=== PATIENT | female | born 1955 | race Two or more races ===

== ENCOUNTER → 2023-10-25 08:32 | Outpatient (REF) | payer OTHER, SELFPAY | LOC: RAD 08:32 | PROVIDERS: ATTENDING PHYSICIAN Nurse Practitioner Family | DX: M54.16 Radiculopathy, lumbar region (principal) | CPT/HCPCS: 72100 ==

== ENCOUNTER 2024-01-30 14:55 | Emergency (ER) | payer OTHER, SELFPAY ==
[2024-01-30 15:01] VITALS: BP 140/84
[2024-01-30 15:22] VITALS: BP 122/55
--- NOTE | 2024-01-30 15:23 | ED.GENMED ---
History of Present Illness
General
Chief Complaint: Swelling
Time Seen by Provider: 01/30/24 15:09
History of Present Illness
History of Present Illness:
68-year-old female presents to the emergency department with her daughter for evaluation of left wrist pain and swelling. This is apparently going on for several months and intermittent fashion. She also reports intermittent left shoulder,
bilateral knee and bilateral hip discomfort. The joint seem to swell and reduce spontaneously. No fevers, night sweats, or weight loss. States that she followed up with her primary care doctor regarding the symptoms but 'did not get any answers'.
She did have knee injections done by an orthopod at some point during this time with minimal improvement in symptoms.
Review of Systems
Review of Systems
Allergies reviewed?: Yes
All Other Systems: ROS reviewed and negative except as documented in HPI and ROS
Phy Exam
Physical Exam
Physical Exam:
GEN: Well appearing, NAD, WDWN
HEENT: Oral mucosa moist, no scleral icterus
Cardiac: Regular rate
Lung: No respiratory distress, no tachypnea
MSK: Diffuse swelling of the left wrist extending to the mid forearm, no pain with passive range of motion of the left wrist. No obvious large joint effusions on exam
Skin: Good color, no pallor or jaundice, no rashes
Neuro: AO x3, moves all extremities freely
Psych: Calm, cooperative
Scores
Heart Failure Risk
Heart Failure Risk Score: Not Applicable
Course
Orders/Labs/Results
Orders:
Orders
01/30/24 15:18
Venous Doppler Upr Ext Left [US Periph Venous UPPER Ext LT] Urgent
Comment:
Reason For Exam: LUE swelling
01/30/24 15:40
CRP [C-Reactive Protein] Urgent
Complete Blood Count/With Diff Urgent
Comprehensive Metabolic Panel Urgent
01/30/24 15:48
Acetaminophen [Tylenol] 650 mg PO NOW STA
Ibuprofen [Motrin] 400 mg PO NOW STA
01/30/24 17:08
Prednisone [Deltasone] 40 mg PO NOW STA
Abnormal Lab Results
01/30/24
15:40
WBC 14.4 H 10^3/uL
(4.8-10.8)
RBC 3.60 L 10^6/uL
(4.20-5.40)
Hgb 11.2 L g/dL
(12.0-16.0)
Hct 32.2 L %
(37.0-47.0)
MCH 31.1 H pg
(27.0-31.0)
Abs Immat Gran (auto) 0.1 H 10^3/uL
(0-0.05)
Absolute Neuts (auto) 11.5 H 10^3/uL
(1.4-6.5)
Absolute Monos (auto) 0.7 H 10^3/uL
(0.1-0.6)
Neutrophils % 80.1 H %
(42.2-75.2)
Lymphocytes % 12.6 L %
(20.5-51.1)
Sodium 129 L mmol/L
(135-145)
Chloride 90 L mmol/L
(98-107)
C-Reactive Protein 29.40 H mg/L
(0.0-10.00)
01/30/24 15:40
01/30/24 15:40
Vital Signs
Initial and Last Documented VS:
Initial Vital Signs
Temp Pulse Resp BP Pulse Ox
99.5 F 66 20 140/84 98
01/30/24 15:01 01/30/24 15:01 01/30/24 15:01 01/30/24 15:01 01/30/24 15:01
Last Documented Vital Signs
Temp Pulse Resp BP Pulse Ox
99.5 F 60 18 132/68 96
01/30/24 15:01 01/30/24 17:17 01/30/24 17:17 01/30/24 17:17 01/30/24 17:17
MDM/Problems Addressed
MDM/Problems Addressed:
68-year-old female presenting with migratory polyarthralgias of uncertain etiology. She has no constitutional symptoms. Elevated CRP suggestive of inflammatory/autoimmune condition. Upper extremity DVT study was unremarkable. Will treat
empirically with a round of steroids, recommend outpatient rheumatology follow-up
*Critical Care Note
Total Time (30-74mins, 75-104mins- exclusive of procedures): Not Applicable
ED Attending Note
-
Portions of this chart may have been created with voice recognition software.� Occasional wrong word or��sound alike� substitutions may have occurred due to the inherent limitations of voice recognition software.
Discharge Plan
Departure
Patient Disposition: Home (Routine Discharge)
Date of Disposition: 01/30/24
Time of Disposition: 17:07
Patient with high blood pressure during this ER visit?: No
Discharge Problem:
Migratory polyarthritis
Instructions: Joint Pain
Prescriptions:
New
prednisone 20 mg tablet
40 mg PO DAILY 6 Days Qty: 12 0RF
Referrals:
Fariha Ladd DO [Active] - Call in 1-3 days for appt
Taryn Rodriguez NP [Family Provider] -
Interventions
Interventions:
*Risk Screen - Suicide Last Done: 01/30/24 15:27
*General Assessment Last Done: 01/30/24 15:27
*Neglect/Abuse Screening Last Done: 01/30/24 15:27
*ED COVID-19 Vaccine History Last Done: 01/30/24 15:27
*Nursing Disposition Last Done: 01/30/24 17:24
ED- Cardiac Assessment Last Done: 01/30/24 15:43
ED- Pulmonary Assessment Last Done: 01/30/24 15:43
ED-Skin Assessment Last Done: 01/30/24 15:43
Discharge Date and Time
Discharge Date/Time: 01/30/24 17:31
Print Language: MOROCCAN
[2024-01-30 15:26] VITALS: BMI 30.9
[2024-01-30 15:47] LABS: % Basophils 0.4 % (0-2); % Eosinophils 1.9 % (0-6); % Immature Granulocytes 0.3 % (0-0.5); % Lymphocytes 12.6 % (20.5-51.1); % Monocytes 4.7 % (1.7-9.3); % Neutrophils 80.1 % (42.2-75.2); Absolute Basophils 0.1 10^3/uL (0-0.2); Absolute Eosinophils 0.3 10^3/uL (0-0.7); Absolute Immature Granulocytes 0.1 10^3/uL (0-0.05); Absolute Lymphocytes 1.8 10^3/uL (1.2-3.4); Absolute Monocytes 0.7 10^3/uL (0.1-0.6); Absolute Neutrophils 11.5 10^3/uL (1.4-6.5); Hematocrit 32.2 % (37.0-47.0); Hemoglobin 11.2 g/dL (12.0-16.0); Mean Corp Hgb Conc. 34.8 g/dL (33.0-37.0); Mean Corpuscular Hgb 31.1 pg (27.0-31.0); Mean Corpuscular Volume 89.4 fL (81.0-99.0); Mean Platelet Volume 9.7 fL (7.4-10.4); Nucleated Red Blood Cells % 0 %; Platelet Count 341 10^3/uL (130-400); Red Cell Dist. Width 13.2 % (11.5-14.5); White Blood Cell Count 14.4 10^3/uL (4.8-10.8)
[2024-01-30] MEDS: TYLENOL 650 MG PO (15:52)
[2024-01-30] MEDS: MOTRIN 400 MG PO (15:52)
[2024-01-30 16:27] LABS: ALT (SGPT) 20 U/L (0-35); AST (SGOT) 23 U/L (14-36); Alkaline Phosphatase 75 U/L (38-126); Blood Urea Nitrogen 12 mg/dl (7-17); Calcium 9.8 mg/dl (8.4-10.2); Carbon Dioxide 29 mmol/L (22-30); Chloride 90 mmol/L (98-107); Estimated Creatinine Clearance 68 ml/min; Glucose 94 mg/dl (70-99); Potassium 3.8 mmol/L (3.5-5.1); Sodium 129 mmol/L (135-145); Total Bilirubin 0.4 mg/dl (0.2-1.3); eGFR > 60.00
[2024-01-30 17:17] VITALS: BP 132/68
[2024-01-30] MEDS: DELTASONE 40 MG PO (17:22)
== END 2024-01-30 17:31 | disposition home or self-care (01) ==
LOC: EMR 14:55
PROVIDERS: Physician Assistant; EMERGENCY PHYSICIAN Emergency Medicine; FAMILY PHYSICIAN Nurse Practitioner Family
DX: M13.832 Other specified arthritis, left wrist (principal)
CPT/HCPCS: 99284; 80053; 85025; 86140; 93971

== ENCOUNTER 2025-02-10 18:51 | Emergency (ER) | payer OTHER, SELFPAY ==
[2025-02-10 19:00] VITALS: BP 149/68
[2025-02-10 19:23] LABS: Hematocrit 33.0 % (37.0-47.0); Hemoglobin 11.3 g/dL (12.0-16.0); Mean Corp Hgb Conc. 34.2 g/dL (33.0-37.0); Mean Corpuscular Volume 90.4 fL (81.0-99.0); Nucleated Red Blood Cells % 0 %; Platelet Count 339 10^3/uL (130-400); Red Cell Dist. Width 13.7 % (11.5-14.5)
[2025-02-10 19:44] LABS: ALT (SGPT) 22 U/L (0-35); AST (SGOT) 23 U/L (14-36); Albumin 4.3 g/dl (3.5-5.0); Alkaline Phosphatase 69 U/L (38-126); Blood Urea Nitrogen 9 mg/dl (7-17); Calcium 9.5 mg/dl (8.4-10.2); Carbon Dioxide 26 mmol/L (22-30); Chloride 89 mmol/L (98-107); Glucose 120 mg/dl (70-99); Potassium 3.9 mmol/L (3.5-5.1); Sodium 123 mmol/L (135-145); Total Protein 7.2 g/dl (6.3-8.2); eGFR > 60.00
[2025-02-10 19:55] LABS: Troponin I < 0.012 ng/ml
[2025-02-10 20:10] VITALS: BMI 30.1
[2025-02-10 20:14] VITALS: BP 154/81
[2025-02-10] MEDS: ZITHROMAX 500 MG PO (21:45)
--- NOTE | 2025-02-11 01:45 | ED.GENMED ---
History of Present Illness
General
Chief Complaint: Chest Pain
Time Seen by Provider: 02/10/25 20:14
Nursing documentation reviewed up to this point in time: agreed with
History of Present Illness
History of Present Illness:
70-year-old female brought to the ER by her family members for evaluation of left-sided chest pain which started 3 days ago. Patient has had a productive cough over the last 10 days. She was seen by primary care physician and was placed on a
course of amoxicillin which she completed 2 days ago. Patient has persistent with rough cough. No fevers. She has had decreased appetite with this illness. No peripheral edema. Pain is not provoked with deep breathing. Patient reported that
the pain was in her mid anterior left chest 3 days ago, it now feels as though she is having similar discomfort in her left upper back. She has not taken any pain relievers for her discomfort, other than her Tylenol which she takes every day for
arthritis pain. She was also given an inhaler by her primary care physician at appointment but has not been using this medication.
Review of Systems
Review of Systems
Allergies reviewed?: Yes
Phy Exam
Physical Exam
Physical Exam:
Patient is awake, alert, appears in no acute distress, head is NCAT, PERRL, EOMI mucous membranes moist, conjunctiva pink, heart regular rate and rhythm without murmurs or ectopy, lungs are clear to auscultation without wheezes rales or rhonchi,
cough provoked with deep inspiration, no JVD, abdomen is soft and nontender on palpation, extremities without edema, GCS is 15, no rash seen to chest wall
Scores
Heart Score for Chest Pain Patients
STEMI patient?: No
History: Slightly or Non-Suspicious
ECG: Normal
Age: >/= 65 years
Risk Factors: No Risk Factors
Troponin: </= Normal Limit
Heart Score for Chest Pain Patients: 2
Heart Score Risk: 2.5% MACE over next 6 weeks
Course
Orders/Labs/Results
Orders:
Orders
10/11/25 18:51
Electrocardiogram (*1) Urgent
Reason for Study: Chest Pain
02/10/25 18:52
EKG- Treatment ONCE
02/10/25 19:04
Cardiac Monitoring- Treatment ONCE
02/10/25 19:10
Complete Blood Count/With Diff Urgent
Comprehensive Metabolic Panel Urgent
Troponin I Urgent
02/10/25 20:07
Chest [CR Chest - 2 Views ] Urgent
Comment:
Reason For Exam: cp cpugh
02/10/25 21:21
Albuterol [ProAIR HFA INHALER] 6 puff INH R NOW STA
Azithromycin [Zithromax] 500 mg PO NOW STA
Abnormal Lab Results
02/10/25
19:10
RBC 3.65 L 10^6/uL
(4.20-5.40)
Hgb 11.3 L g/dL
(12.0-16.0)
Hct 33.0 L %
(37.0-47.0)
Sodium 123 L mmol/L
(135-145)
Chloride 89 L mmol/L
(98-107)
Glucose 120 H mg/dl
(70-99)
02/10/25 19:10
02/10/25 19:10
Hyponatremia seen, worsened compared to prior labs from 01/30/2024. White blood count normal. Mild anemia noted similar to prior
Vital Signs
Initial and Last Documented VS:
Initial Vital Signs
Temp Pulse Resp BP Pulse Ox
98.3 F 73 18 149/68 99
02/10/25 19:00 02/10/25 19:00 02/10/25 19:00 02/10/25 19:00 02/10/25 19:00
Last Documented Vital Signs
Temp Pulse Resp BP Pulse Ox
98.3 F 75 21 154/81 100
02/10/25 19:00 02/10/25 20:15 02/10/25 20:15 02/10/25 20:14 02/10/25 20:15
MDM/Problems Addressed
Differential Diagnosis Includes:
Differential diagnosis to consider but not limited to pneumonia, costochondritis, muscle strain, along with other etiologies considered
Chronic conditions affecting care:
Hyponatremia, anemia
*Radiology
Radiology exam reviewed: preliminary read by ED provider (I independently viewed and interpreted two-view chest x-ray showing clear lungs, normal cardiac silhouette) and radiology read reviewed (Radiology interpretation is in agreement)
*Pulse Oximetry
SaO2: 100
Oxygen Mode of Delivery: Room air
Patient hypoxic: no
*EKG
Interpreted by ED Provider?: Yes (I independently viewed and interpreted twelve-lead EKG showing normal sinus rhythm, rate 74, normal axis, nonspecific ST changes, no ST elevation, this is a borderline EKG, no prior for comparison)
*[employer] Engineer Interpretation
Rate: normal (I independently viewed interpreted rhythm strip showing normal sinus rhythm, no ectopy)
*Critical Care Note
Total Time (30-74mins, 75-104mins- exclusive of procedures): Not Applicable
Update Note
Update Note:
Patient appears in no acute distress during period of observation. No evidence of hypoxia. Troponin is negative which is very reassuring given duration of symptoms for 3 days. I Discussed with patient and daughters present at bedside clinical
diagnosis of bronchitis and benefit of second course of antibiotics. I discussed with them hyponatremia seen on labs-patient has been noncompliant with using her saline solution which she had was preferred as an alternative to the salt tabs that
her doctor had previously prescribed. Patient would be willing to reinitiate her salt tabs. I discussed with the daughters need to follow-up with primary care physician for repeated blood work in order to reassess sodium level. Patient is given 6
puff and albuterol inhaler for her symptomatic relief while in the emergency department. I discussed with patient benefit of using inhaler in addition to completing course of antibiotics. She expressed understanding of discharge instructions and
had no questions prior to leaving department.
ED Attending Note
-
Portions of this chart may have been created with voice recognition software.� Occasional wrong word or��sound alike� substitutions may have occurred due to the inherent limitations of voice recognition software.
Discharge Plan
Departure
Patient Disposition: Home (Routine Discharge)
Date of Disposition: 02/10/25
Time of Disposition: 21:44
Patient with high blood pressure during this ER visit?: No
Discharge Problem:
Bronchitis, Acute costochondritis, Chronic hyponatremia
Instructions: Costochondritis (DC), Hyponatremia, Bronchitis in adults - ED (DC)
Prescriptions:
New
sodium chloride 1,000 mg tablet,soluble
1,000 mg PO DAILY Qty: 14 0RF
azithromycin [Zithromax] 250 mg tablet
250 mg PO DAILY Qty: 4 0RF
No Action
prednisone 20 mg tablet
40 mg PO DAILY 6 Days Qty: 12 0RF
Referrals:
UNKNOWN - PT DOES,NOT KNOW [Family Provider]
Activity Restrictions/Additional Instructions:
Please follow-up with your physician this week for reevaluation as you will need to have repeated blood work to recheck your sodium level. Use inhaler as given in the emergency department-2 puffs 4 times daily to help with cough and discomfort.
Use Tylenol for any pain. Complete course of antibiotics (at their max) as prescribed. Return to the ER for any concerns
Interventions
Interventions:
*Risk Screen - Suicide Last Done: 02/10/25 19:00
*General Assessment Last Done: 02/10/25 19:00
*Neglect/Abuse Screening Last Done: 02/10/25 20:10
*ED- Fall Risk Assessment Last Done: 02/10/25 20:10
*ED COVID-19 Vaccine History Last Done: 02/10/25 20:10
*ED Influenza Vaccine History Last Done: 02/10/25 20:10
*Nursing Disposition Last Done: 02/10/25 23:17
ED- Cardiac Assessment Last Done: 02/10/25 20:10
Discharge Date and Time
Discharge Date/Time: 02/10/25 23:18
Print Language: WOLOF
== END 2025-02-10 23:18 | disposition home or self-care (01) ==
LOC: EMR 18:51
PROVIDERS: Emergency Medicine; EMERGENCY PHYSICIAN Emergency Medicine
DX: J20.9 Acute bronchitis, unspecified (principal); M94.0 Chondrocostal junction syndrome [Tietze]; E87.1 Hypo-osmolality and hyponatremia; D64.9 Anemia, unspecified; M19.90 Unspecified osteoarthritis, unspecified site; T50.3X6A Underdosing of electrolytic, caloric and water-balance agents, initial encounter; Z91.148 Patient's other noncompliance with medication regimen for other reason
CPT/HCPCS: 99284; 71046; 80053; 84484; 85025; 93005